=== PATIENT | female | born 1975 | race Caucasian/White ===

== ENCOUNTER 2020-08-28 16:03 | Emergency (ER) | payer BC ==
[~2020-08-28] VITALS: Ht 152.4 cm; Wt 98.0 kg
[2020-08-28 16:07] VITALS: BP_SYST 145
--- NOTE | 2020-08-28 16:35 | NUR ---
Patient to ER bed 07 to gown for evaluation. Side rails up.
--- NOTE | 2020-08-28 16:37 | NUR ---
Patient brought in complaining of vaginal bleeding x 3 days wtih worsening today. Patient reports saturating 1 pad per hour today. Reports blood was originally dark red in nature and has become more bright red. Patient also complains of left pelvic cramping, left lower back pain, headache and dizziness. Pain 6/10
--- NOTE | 2020-08-28 16:43 | NUR ---
Urine specimen collected and analyzed in ER. Results given to ER DIRECTOR INSTITUTION. Urine HCG done, results neg
--- NOTE | 2020-08-28 16:49 | NUR ---
KYRA Dixon examining patient.
[2020-08-28] MEDS ORDERED: KETOROLAC TROMETHAMINE 60 MG/2 ML VIAL IM ONE (17:00)
[2020-08-28] MEDS ORDERED: ONDANSETRON 4 MG ODT TAB PO ONE (17:00)
--- NOTE | 2020-08-28 17:13 | NUR ---
medicated per BOXING PROMOTER orders. Patient tolerated well.
--- NOTE | 2020-08-28 17:17 | NUR ---
Blood drawn by phlebotimist
[2020-08-28 17:23] LABS: BILIRUBIN,URINE NEGATIVE (NEGATIVE); BLOOD, URINE 2+ (NEGATIVE); COLOR,URINE YELLOW (YELLOW); GLUCOSE,URINE NEGATIVE (NEGATIVE); KETONES,URINE NEGATIVE (NEGATIVE); LEUKOCYTE ESTERASE ,URINE NEGATIVE (NEGATIVE); NITRITE, URINE NEGATIVE (NEGATIVE); PROTEIN URINE NEGATIVE (NEGATIVE); UROBILINOGEN,URINE 0.2 (0.2-1.0)
[2020-08-28 17:25] LABS: CLARITY/URINE SLIGHTLY HAZY (CLEAR)
[2020-08-28 17:44] LABS: BASOPHILS # (AUTO) 0.1 K/uL (0.0-0.2); BASOPHILS % (AUTO) 0.8 % (0.0-2.0); EOSINOPHILS # (AUTO) 0.3 K/uL (0.0-0.4); HEMATOCRIT 41.6 % (36-48); HEMOGLOBIN 13.8 g/dL (12.0-16.0); LYMPHOCYTES # (AUTO) 2.3 K/uL (1.0-5.5); LYMPHOCYTES % (AUTO) 25.5 % (20.5-51.5); MEAN CORPUSCULAR HEMOGLOBIN 29 pg (27-31); MEAN CORPUSCULAR HGB CONC 33 % (32-36); MEAN CORPUSCULAR VOLUME 87 fL (79.0-98.0); MONOCYTES # (AUTO) 0.7 K/uL (0.0-1.0); MONOCYTES % (AUTO) 7.5 % (1.7-9.3); NEUTROPHILS # (AUTO) 5.6 K/uL (1.8-7.7); NEUTROPHILS % (AUTO) 63.2 % (40.0-70.0); PLATELET COUNT (AUTO) 201 K/uL (130-430); RED BLOOD CELL COUNT(AUTO) 4.78 MIL/uL (4.2-6.2); WHITE BLOOD COUNT (AUTO) 8.8 K/uL (4.8-10.8)
[2020-08-28 17:51] LABS: BACTERIA,URINE RARE /HPF (None Seen); RBC,URINE 20-50 /HPF (0-3); WBC,URINE NONE SEEN /HPF (0-3)
[2020-08-28 17:52] LABS: MUCUS,URINE None Seen /LPF (None Seen)
[2020-08-28 17:54] LABS: CALCIUM 8.9 mg/dL (8.4-11.0); CREATININE 0.96 mg/dL (0.55-1.30); POTASSIUM 4.1 mmol/L (3.5-5.1)
--- NOTE | 2020-08-28 18:36 | NUR ---
pelPelvic exam performed by ANGELICA Dixon with RICHY Guthrie at bedside for entire examination. Patient tolerated procedure well. Patient assisted to position of comfort after examination.
--- NOTE | 2020-08-28 18:38 | NUR ---
ANGELICA Dixon at bedside discussing results with patient.
[2020-08-28 19:18] VITALS: BP_SYST 132
--- NOTE | 2020-08-28 19:18 | NUR ---
Patient given written and verbal discharge instructions and verbalizes understanding. ER CHILD CARE DIRECTOR discussed with patient the results and treatment provided. Patient in stable condition. ID arm band removed. Rx of Motrin, Premarin, and Zofran given. Patient educated on pain management and to follow up with PMD. Pain Scale 0/10 Opportunity for questions provided and answered. Medication side effect fact sheet provided.
== END 2020-08-28 19:18 | disposition home or self-care (01) ==
LOC: SED 16:03
DX: N93.8 Other specified abnormal uterine and vaginal bleeding (principal); E07.9 Disorder of thyroid, unspecified; R03.0 Elevated blood-pressure reading, without diagnosis of hypertension; F17.200 Nicotine dependence, unspecified, uncomplicated; Z86.2 Personal history of diseases of the blood and blood-forming organs and certain disorders involving the immune mechanism; Z71.6 Tobacco abuse counseling
CPT/HCPCS: 76830; 36415; 76857; 80048; 81000; 81025; 83690; 84443; 85025; 96372; 99284; J1885; Q0162; 76856-TC